=== PATIENT | female | born 1980 | race Caucasian/White ===

== ENCOUNTER 2016-08-13 13:18 | Emergency (ER) | payer OTHER ==
--- NOTE | ~2016-08-13 | EKG ---
PATIENT: DEUCE LAMBERT UNIT #: [id number] Ventricular Rate: 95 BPM Atrial Rate: 95 BPM P-R Interval: 130 ms QRS Duration: 76 ms Q-T Interval: 350 ms QTC Calculation(Bezet): 439 ms P Wendell: 56 degrees Calculated R Wendell: 46 degrees Calculated T Wendell: 37 degrees Diagnosis Line: Normal sinus rhythm Diagnosis Line: Nonspecific ST abnormality Diagnosis Line: Otherwise normal ECG Diagnosis Line: No previous ECGs available Diagnosis Line: Confirmed by EDUARDO CORRIGAN MD ([id number]) on 08/18/2016 Diagnosis Line: 5:33:25 PM INTERPRETING MD: MEENU GARCIA
--- NOTE | ~2016-08-13 | CT71 ---
[facility]. [facility] A Service of [facility] RADIOLOGY TEXT RESULTS PATIENT: DEUCE LAMBERT LOCATION: SED : 76 UNIT #: [id number] AGE: [address]: Roldan Ortiz DO SEX: F ORDER DR: [id number] [place] [id number] E MR#: [id number] Acc #: [id number] NAME: DEUCE LAMBERT : 1980 SEX: F STUDY DATE/TIME: 08/13/2016 13:21 UNIT: SED ROOM: STUDY DESCRIPTION: CT Head Wo Contrast Attending Physician: Roldan Ortiz Ordering Physician: Staff Doctor Not On Primary Care Physician: Brooklyn Huerta A.P.R.N. MEDICAL IMAGING REPORT This report is preliminary unless electronic signature is present. EXAM Head CT without HISTORY Anxiety attack. Patient to be cleared before going to skilled nursing lightheaded and headaches for years. TECHNIQUE This CT exam was performed with one or more of the following radiation dose reduction techniques: automatic control, adjustment of mA and/or kV according to patient size, and iterative reconstruction. COMMENT Routine noncontrast head CT is reviewed. Comparison 01/23/2011. No displaced calvarial fracture. There is partial opacification of the right-sided ethmoid air cells and right sphenoid sinus contains a mucous retention cyst or polyps. The findings are mildly progressed from prior study but there is no air-fluid level in the visualized paranasal sinuses. 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 There is no evidence for acute intracranial hemorrhage or extraaxial fluid collection. The basilar cisterns are patent. No intracranial mass effect. No acute cortical infarct. IMPRESSION 1. There is no acute intracranial injury. 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 2. There is partial demonstration of paranasal sinus disease but no sinus air-fluid level. [facility] A Service [facility] RADIOLOGY TEXT RESULTS PATIENT: LAMBERT,CRYSTAL LOCATION: SED : 76 UNIT #: [id number] AGE: [address]: Roldan Ortiz DO SEX: F ORDER DR: Dictated by... Trish Martinez M.D. THIS IS AN ELECTRONICALLY VERIFIED REPORT Trish Martinez M.D. at 08/14/2016 6:20 AM NATHANIEL/dedra TD: 08/14/2016 04:56 JOB #: [id number] MEDICAL IMAGING REPORT
--- NOTE | ~2016-08-13 | CR282 ---
[facility]. [facility] A Service of [facility] & [facility] RADIOLOGY TEXT RESULTS PATIENT: DEUCE LAMBERT LOCATION: SED : 76 UNIT #: [id number] AGE: [address]: Roldan Ortiz DO SEX: F ORDER DR: [id number] [place] [address] [id number] E MR#: [id number] Acc #: [id number] NAME: DEUCE LAMBERT : 1980 SEX: F STUDY DATE/TIME: 08/13/2016 13:17 UNIT: SED ROOM: STUDY DESCRIPTION: CR Wrist Min 3 View Rt Attending Physician: Roldan Ortiz Ordering Physician: Staff Doctor Not On Primary Care Physician: Brooklyn Huerta A.P.R.N. MEDICAL IMAGING REPORT This report is preliminary unless electronic signature is present. EXAM Wrists 3-views right HISTORY Wrist pain after punching something prior to arrival. COMMENT 3 views of the right wrist reviewed. No comparison. There is no acute fracture, dislocation or radiopaque foreign body suspected. The frontal view is poorly positioned and ideally should be repeated. IMPRESSION 1. The frontal view of the wrist is poorly positioned and should be repeated. Otherwise no acute fracture, dislocation or radiopaque foreign body is currently suspected. Dictated by... Trish Martinez M.D. THIS IS AN ELECTRONICALLY VERIFIED REPORT Trish Martinez M.D. at 08/14/2016 6:20 AM NATHANIEL/dedra TD: 08/14/2016 04:40 JOB #: [id number] MEDICAL IMAGING REPORT
[~2016-08-13 13:18] MED LIST: ATIVAN PO; BENTYL20 MG PO; NO MEDICATIONS; ORUDIS75 M1 PO; PEN-VEE K PO; PHENERGAN PO; PROZAC40 M1; ULTRAM PO; VICODIN 5/500 T1 TAB PO; VICODIN PO; VOLTAREN75 MG PO
== END 2016-08-13 14:30 | disposition home or self-care (01) ==
LOC: SED 13:18
DX: S63.501A Unspecified sprain of right wrist, initial encounter (principal); F41.9 Anxiety disorder, unspecified; F17.210 Nicotine dependence, cigarettes, uncomplicated; Y08.89XA Assault by other specified means, initial encounter
CPT/HCPCS: 70450; 73110; 93005; 99284